=== PATIENT | male | born 1980 | race Caucasian/White ===

== ENCOUNTER 2017-07-04 22:22 | Emergency (ER) | payer OTHER ==
[~2017-07-04] VITALS: Ht 175.3 cm; Wt 103.6 kg
[~2017-07-04 22:22] MED LIST: BAYER BACK AND BODY PO; CIPRO500 MG PO; FLAGYL500 MG PO; NEXIUM40 MG PO; PERCOCET 5/31 TABLET PO
[2017-07-05] MEDS ORDERED: MEDROL DOSEPAK4 MG PO (00:40)
[2017-07-05] MEDS ORDERED: NORCO 5/3251 TABLET PO (00:40)
[2017-07-05] MEDS ORDERED: ROBAXIN750 MG PO (00:40)
[2017-07-05 00:58] VITALS: BP 146/97
[2017-07-05] MEDS ORDERED: LIDODERM 5% P1 PATCH TD (20:07)
[2017-07-05] MEDS ORDERED: FLEXERIL10 MG PO (20:07)
== END 2017-07-05 00:59 | disposition home or self-care (01) ==
LOC: EME 22:22
DX: M54.5 Low back pain (principal); G89.29 Other chronic pain
CPT/HCPCS: 99281; 99284; J7512

== ENCOUNTER 2017-07-05 18:19 | Emergency (ER) | payer OTHER ==
[~2017-07-05] VITALS: Ht 175.3 cm; Wt 103.2 kg
[~2017-07-05 18:19] MED LIST changes: +MEDROL DOSEPAK4 MG PO; +NORCO 5/3251 TABLET PO; +ROBAXIN750 MG PO
[2017-07-05] MEDS ORDERED: FLEXERIL10 MG PO (20:07)
[2017-07-05] MEDS ORDERED: LIDODERM 5% P1 PATCH TD (20:07)
[2017-07-05 20:45] VITALS: BP 142/88
== END 2017-07-05 20:46 | disposition home or self-care (01) ==
LOC: EME 18:19
DX: M54.5 Low back pain (principal); G89.29 Other chronic pain
CPT/HCPCS: 72100; 99281; 99284; J1885

== ENCOUNTER 2017-11-11 11:41 | Emergency (ER) | payer OTHER ==
[~2017-11-11] VITALS: Ht 177.8 cm; Wt 98.0 kg
[~2017-11-11 11:41] MED LIST changes: +FLEXERIL10 MG PO; +LIDODERM 5% P1 PATCH TD
[2017-11-11] MEDS ORDERED: FLEXERIL10 MG PO (12:57)
[2017-11-11] MEDS ORDERED: MOTRIN800 MG PO (12:57)
[2017-11-11 16:35] VITALS: BP 138/80
== END 2017-11-11 16:38 | disposition home or self-care (01) ==
LOC: EME 11:41
DX: S83.92XA Sprain of unspecified site of left knee, initial encounter (principal); X58.XXXA Exposure to other specified factors, initial encounter; R20.2 Paresthesia of skin; M54.5 Low back pain; Z98.890 Other specified postprocedural states; M51.44 Schmorl's nodes, thoracic region
CPT/HCPCS: 72132; 73564; 73701; 99281; 99284; J7030